=== PATIENT | female | born 1985 | race Native Hawaiian/Other Pacific Islander ===

== ENCOUNTER 2017-03-25 17:28 | Emergency (ER) | payer OTHER ==
[~2017-03-25] VITALS: Ht 165.1 cm; Wt 68.0 kg
[2017-03-25] MEDS ORDERED: KEPPRA XR500 MG PO (17:43)
== END 2017-03-25 19:30 | disposition home or self-care (01) ==
LOC: ED 17:28
DX: F11.23 Opioid dependence with withdrawal (principal); F13.239 Sedative, hypnotic or anxiolytic dependence with withdrawal, unspecified; F15.93 Other stimulant use, unspecified with withdrawal; Z33.1 Pregnant state, incidental
CPT/HCPCS: 36415; 80307; 84702; 99281; G0479

== ENCOUNTER 2018-03-14 14:10 | Emergency (ER) | payer OTHER ==
[~2018-03-14] VITALS: Ht 165.1 cm; Wt 65.3 kg
[~2018-03-14 14:10] MED LIST: KEPPRA XR500 MG PO
[2018-03-14 14:12] VITALS: TEMP 98.4
[2018-03-14 14:51] LABS: PLATELET COUNT 373 K/uL (152-353)
[2018-03-14 15:01] LABS: POTASSIUM 3.5 mmol/L (3.6-5.2)
[2018-03-14 15:15] VITALS: BP 110/78
== END 2018-03-14 15:15 | disposition home or self-care (01) ==
LOC: ED 14:10
DX: L01.09 Other impetigo (principal)
CPT/HCPCS: 80053; 85027; 99283

== ENCOUNTER 2021-12-27 17:01 | Emergency (ER) | payer OTHER ==
[~2021-12-27] VITALS: Ht 165.1 cm; Wt 65.3 kg
[2021-12-27 17:03] VITALS: TEMP 97.8
[2021-12-27 17:27] LABS: PLATELET COUNT 285 K/uL (152-353)
[2021-12-27 17:37] LABS: POTASSIUM 3.5 mmol/L (3.6-5.2)
[2021-12-27 19:50] VITALS: BP 122/78
== END 2021-12-27 19:50 | disposition home or self-care (01) ==
LOC: ED 17:01
PROVIDERS: Emergency Medicine
DX: F19.10 Other psychoactive substance abuse, uncomplicated (principal); T40.411A Poisoning by fentanyl or fentanyl analogs, accidental (unintentional), initial encounter; T43.621A Poisoning by amphetamines, accidental (unintentional), initial encounter; X58.XXXA Exposure to other specified factors, initial encounter; Y92.89 Other specified places as the place of occurrence of the external cause
CPT/HCPCS: 80053; 80143; 80179; 80307; 80320; 81000; 84484; 85027; 85610; 93005; 99283

== ENCOUNTER 2022-03-10 20:55 | Emergency (ER) | payer OTHER ==
[~2022-03-10] VITALS: Ht 160 cm; Wt 72.6 kg
[2022-03-10 21:00] VITALS: TEMP 99.3
[2022-03-10 21:54] LABS: PLATELET COUNT 210 K/uL (152-353)
[2022-03-10 22:02] LABS: POTASSIUM 3.5 mmol/L (3.6-5.2)
[2022-03-11 00:13] VITALS: BP 128/77
== END 2022-03-11 00:13 | disposition home or self-care (01) ==
LOC: ED 20:55
PROVIDERS: Emergency Medicine Emergency Medical Services
DX: R21 Rash and other nonspecific skin eruption (principal); L03.211 Cellulitis of face
CPT/HCPCS: 36415; 80048; 85027; 87651; 96360; 96365; 99284; J3370